=== PATIENT | female | born 1985 | race Caucasian/White ===

== ENCOUNTER 2020-07-02 16:47 | Observation (INO) ==
[2020-07-02] MEDS ORDERED: *HR* LORazepam 1 MG TABLET PO ONE (17:08)
[2020-07-02 17:35] LABS: Basophils # 0.1 K/mcL (0.0-0.2); Basophils % 0.6 %; Eosinophils # 0.1 K/mcL (0.0-0.6); Eosinophils % 0.5 %; Hematocrit 42.4 % (35.3-44.9); Immature Granulocytes % 0.2 % (0-4); Lymphocytes # 3.6 K/mcL (0.6-4.6); Lymphocytes % 35.1 %; Mean Corpuscular Hemoglobin 28.7 pg (28.0-33.3); Mean Corpuscular Volume 86.9 fL (83.0-100.0); Mean Platelet Volume 9.4 fL (9.4-12.4); Monocytes # 0.7 K/mcL (0.0-1.3); Monocytes % 6.9 %; Neutrophils # 5.8 K/mcL (1.6-8.9); Platelet Count 242 K/mcL (140-400); Red Blood Count 4.88 M/mcL (3.82-4.97); Red Cell Distribution Width 12.9 % (11.5-14.5); Segmented Neutrophils % 56.7 %; White Blood Count 10.2 K/mcL (4.3-11.1)
[2020-07-02 17:40] LABS: Bilirubin,Urine Negative (Negative); Blood,Urine Negative (Negative); Clarity,Urine Clear (Clear); Color,Urine Colorless (Yellow); Glucose,Urine (UA) Normal (Normal); Ketones,Urine Negative (Negative); Leukocyte Esterase,Urine Negative (Negative); Nitrite,Urine Negative (Negative); PH,Urine 6.5 pH Units (5.0-8.0); Protein,Urine Negative (Neg-Trace); Specific Gravity,Urine 1.015 (1.010-1.025); Urobilinogen,Urine Normal (Normal)
[2020-07-02 17:50] LABS: Amphetamine Screen,Urine Negative ng/mL (Cutoff=1000); Barbiturate Screen,Urine Negative ng/mL (Cutoff=200); Benzodiazepines Screen,Urine Negative ng/mL (Cutoff=200); Cannabinoid Screen,Urine Negative ng/mL (Cutoff = 50); Cocaine Screen,Urine Negative ng/mL (Cutoff= 300); Opiate Screen,Urine Negative ng/mL (Cutoff=300); Phencyclidine Screen,Urine Negative ng/mL (Cutoff=25)
[2020-07-02 17:55] LABS: Acetaminophen < 10 mcg/mL (10-20); BUN/Creatinine Ratio 18 (6-26); Blood Urea Nitrogen 13 mg/dL (6-20); Calcium 9.6 mg/dL (8.6-10.3); Carbon Dioxide 26 mEq/L (23-29); Chloride 104 mEq/L (98-107); Ethanol < 10 mg/dL (Less than 10); Glucose 93 mg/dL (70-105); Osmolality,Calculated 284 (280-300); Potassium 3.6 mEq/L (3.5-5.1); Salicylate < 2.5 mg/dL (15.0-30.0); Sodium 137 mEq/L (136-145); eGFR For African Americans > 60 (> 60); eGFR For Non-African Americans > 60 (> 60)
[2020-07-02] MEDS ORDERED: hydrOXYzine pamoate 25 MG CAPSULE PO PRN (20:06)
[2020-07-02] MEDS ORDERED: haloperidoL 5 MG TABLET PO PRN (20:06)
[2020-07-02] MEDS ORDERED: Haloperidol Lactate 5 MG/ML VIAL IM PRN (20:06)
[2020-07-02] MEDS ORDERED: MOM Conc 10 ML UD.LIQ PO PRN (20:06)
[2020-07-02] MEDS ORDERED: traZODone 50 MG TABLET PO PRN (20:06)
[2020-07-02] MEDS ORDERED: *HR* LORazepam 1 MG TABLET PO PRN (20:06)
[2020-07-02] MEDS ORDERED: Mag Hydrox/Al Hydrox/Simeth 30 ML UDC PO PRN (20:06)
[2020-07-02] MEDS ORDERED: *HR* LORazepam 2 MG/ML VIAL IM PRN (20:06)
[2020-07-02] MEDS ORDERED: Ibuprofen 800 MG TABLET PO PRN (20:14)
[2020-07-02] MEDS: Ibuprofen 400 MG TABLET PO PRN (22:50)
[2020-07-02] MEDS: Gabapentin 300 MG CAPSULE PO SCH (23:00)
[2020-07-03] MEDS: Gabapentin 300 MG CAPSULE PO SCH (08:31)
[2020-07-03] MEDS: Ibuprofen 400 MG TABLET PO PRN (08:32)
[2020-07-03 08:36] VITALS: BP 115/78
[2020-07-03] MEDS ORDERED: clonazePAM 0.5 MG TABLET PO PRN (10:16)
== END 2020-07-03 12:00 | disposition home or self-care (01) ==
LOC: EMEROOARM 16:47 → 1ANU 16:47
PROVIDERS: ADMIT Psychiatry & Neurology Psychiatry; ATTEND Psychiatry & Neurology Psychiatry